=== PATIENT | male | born 2000 | race Two or more races ===

== ENCOUNTER 2021-05-22 16:54 | Emergency (ER) | payer OTHER ==
[~2021-05-22] VITALS: Ht 177.8 cm; Wt 109.1 kg
[2021-05-22] MEDS ORDERED: ONDANSETRON HCL 4 MG/2 ML VIAL IVP ONE (17:00)
[2021-05-22] MEDS ORDERED: FentaNYL CITRATE PF 100 MCG/2 ML VIAL IVP ONE ×2 (17:00→18:00)
[2021-05-22] MEDS ORDERED: CeFAZolin 2 GM/DEXTROSE 50 ML IV ONE (17:00)
[2021-05-22] MEDS ORDERED: BACITRACIN 0.9 GM PACKET OINTMENT TP ONE (17:15)
[2021-05-22 17:49] VITALS: BP 129/57
== END 2021-05-22 18:03 | disposition short-term general hospital (02) ==
LOC: EMS 16:56
DX: S52.251B Displaced comminuted fracture of shaft of ulna, right arm, initial encounter for open fracture type I or II (principal); S52.351B Displaced comminuted fracture of shaft of radius, right arm, initial encounter for open fracture type I or II; R10.9 Unspecified abdominal pain; V29.9XXA Motorcycle rider (driver) (passenger) injured in unspecified traffic accident, initial encounter; Y93.89 Activity, other specified; Y92.89 Other specified places as the place of occurrence of the external cause; Y99.8 Other external cause status
CPT/HCPCS: 29125; 36415; 71045; 72170; 73090; 96365; 96375; 96376; 99291; J0690; J2405; J3010